=== PATIENT | male | born 1990 | race Two or more races ===

== ENCOUNTER 2019-01-01 05:06 | Emergency (ER) | payer SELFPAY ==
[2019-01-01 05:52] LABS: ACETAMINOPHEN < 2 ug/mL (<2)
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
== END 2019-01-01 08:30 ==
LOC: FB.ED 05:06
DX: F33.3 Major depressive disorder, recurrent, severe with psychotic symptoms (principal); F23 Brief psychotic disorder; F17.210 Nicotine dependence, cigarettes, uncomplicated
CPT/HCPCS: 36415; 80053; 80305; 84443; 85025; 99285; G0480